=== PATIENT | male | born 2000 | race Caucasian/White ===

== ENCOUNTER 2021-08-12 13:37 | Emergency (ER) | payer MEDICAID ==
[~2021-08-12] VITALS: Ht 185.4 cm; Wt 175.0 kg
[~2021-08-12 13:37] MED LIST: rocuronium 10mg/ml inj IV ONE
[2021-08-12] MEDS ORDERED: LORazepam 2 mg/ml vial IV ONE ×2 (14:00→14:05)
--- NOTE | 2021-08-12 14:00 | NUR ---
Given 2mg of ativan IV in CT department. Pt had a tonic seizure lasting 1 min. L boyd gaze. Suctioned oral airway for secreations. Pt has bite garcia on his tongue.
[2021-08-12] MEDS ORDERED: LORazepam 2 mg/ml vial ONE (14:02)
[2021-08-12 14:03] LABS: BASOPHILS # (AUTO) 0.1 X10'3 (0-0.2); BASOPHILS % (AUTO) 0.5 % (0-1); EOSINOPHILS # (AUTO) 0.4 X10'3 (0-0.9); EOSINOPHILS % (AUTO) 1.9 % (0-6); HEMATOCRIT 46.8 % (42.0-52.0); LYMPHOCYTES # (AUTO) 5.8 X10'3 (1.1-4.8); LYMPHOCYTES % (AUTO) 27.3 % (21-51); MEAN CORPUSCULAR HEMOGLOBIN 30.2 PG (27.0-31.0); MEAN CORPUSCULAR VOLUME 94.3 FL (78-98); MEAN PLATELET VOLUME 8.8 FL (7.4-10.4); MONOCYTES # (AUTO) 1.3 X10'3 (0-0.9); MONOCYTES % (AUTO) 6.1 % (2-12); NEUTROPHILS # (AUTO) 13.7 X10'3 (1.8-7.7); NEUTROPHILS % (AUTO) 64.2 % (42-75); PLATELET COUNT 297 X10'3 (140-440); RED BLOOD COUNT 4.96 X10'6 (4.70-6.10); RED CELL DISTRIBUTION WIDTH 13.6 % (11.5-14.5); WHITE BLOOD COUNT 21.4 X10'3 (4.5-11.0)
[2021-08-12] MEDS ORDERED: succinylcholine 20mg/ml inj IV ONE (14:16)
[2021-08-12 14:18] LABS: ALANINE AMINOTRANSFERASE 31 U/L (12-78); ALBUMIN 4.9 G/DL (3.4-5.0); ALBUMIN/GLOBULIN RATIO 1.3 (1.1-1.5); ALKALINE PHOSPHATASE 80 IU/L (20-180); ANION GAP 27 (8-16); ASPARTATE AMINO TRANSFERASE 32 U/L (10-37); BILIRUBIN,TOTAL 0.5 MG/DL (0.1-1.0); BLOOD UREA NITROGEN 12 MG/DL (7-18); BUN/CREATININE RATIO 9.2 (5.4-32.0); CHLORIDE 103 MMOL/L (99-107); CREATININE 1.31 MG/DL (0.60-1.10); ETHANOL < 0.010 GM/DL (0.0-0.010); GLUCOSE 354 MG/DL (70-104); POTASSIUM 3.3 MMOL/L (3.5-5.1); SODIUM 144 MMOL/L (135-145); TOTAL PROTEIN 8.7 G/DL (6.4-8.2); eGFR 70 ML/MIN
[2021-08-12] MEDS ORDERED: MANNITOL 20% IV ONE (14:25)
[2021-08-12] MEDS ORDERED: levetiracetam inj 2,000 MG in normal saline 100ml IV soln 80 ML IV SCH (14:26)
[2021-08-12] MEDS ORDERED: rocuronium 10mg/ml inj IV ONE (14:30)
[2021-08-12] MEDS ORDERED: etomidate 2mg/ml inj. IV ONE (14:30)
[2021-08-12] MEDS ORDERED: levetiracetam inj 2,000 MG in normal saline 100ml IV soln 80 ML IV ONE (14:31)
[2021-08-12 14:32] LABS: MAGNESIUM 2.3 MG/DL (1.5-2.4); PARTIAL THROMBOPLASTIN TIME 23 SECONDS (22-32)
[2021-08-12 14:33] LABS: TOTAL CARBON DIOXIDE 13.8 MMOL/L (24-32)
--- NOTE | 2021-08-12 14:40 | NUR ---
HOB ELEVATED TO 45 DEGREES SINCE PT HAS BEEN BACK FROM CT
[2021-08-12] MEDS ORDERED: fentaNYL/PF 50MCG/1 ML 2ML syringe IV PRN (14:45)
[2021-08-12] MEDS ORDERED: FENTANYL-0.9 % NACL/PF 100 ML IV PRN (14:45)
[2021-08-12] MEDS ORDERED: midazolam 100mg in NS 100ml 100 ML IV PRN (14:45)
[2021-08-12] MEDS ORDERED: normal saline 1000ml 1,000 ML IV ONE (14:45)
[2021-08-12] MEDS ORDERED: midazolam 1 mg/ML 2ml injection IV ONE (14:45)
[2021-08-12 14:49] VITALS: BP 166/95
[2021-08-12] MEDS ORDERED: sodium bicarbonate (8.4%) inj. 50 MEQ in dextrose 5%-water 1,000 ML IV SCH (14:50)
[2021-08-12] MEDS ORDERED: midazolam 1 mg/ML 2ml injection ONE (14:50)
--- NOTE | 2021-08-12 15:00 | NUR ---
WENT WITH EMS AN MICN FOR PT TRANSPORT/TRANSFER TO [facility] IN [place]. NO MEDICATIONS WERE NEEDED DURING TRANSPORT AND PT REMAINED STABLE EN ROUTE. PT WAS BAGGED BY EMS WITH THE ETT TUBE THAT WAS PLACED HERE IN THE ER BY [facility] PRIOR TO TRANSFER. REPORT WAS GIVEN TO ION NURSE VIA PHONE AND THEN ALSO THE NURSES AT BEDSIDE UPON [facility] ED TRAUMA PHYSICIAN AND PA.
--- NOTE | 2021-08-12 15:10 | NUR ---
Report given to EMS. Pt is being transported to [facility] as a trauma activation.
[2021-08-12] MEDS ORDERED: levetiracetam inj 1,000 MG in normal saline 100ml IV soln 90 ML IV SCH ×4 (20:00)
== END 2021-08-12 15:10 ==
LOC: ER 13:37
DX: S02.19XA Other fracture of base of skull, initial encounter for closed fracture (principal); Z20.822 Contact with and (suspected) exposure to COVID-19; S06.4X9A Epidural hemorrhage with loss of consciousness of unspecified duration, initial encounter; S00.12XA Contusion of left eyelid and periocular area, initial encounter; R11.10 Vomiting, unspecified; R06.89 Other abnormalities of breathing; X58.XXXA Exposure to other specified factors, initial encounter; Y93.89 Activity, other specified; Y92.002 Bathroom of unspecified non-institutional (private) residence as the place of occurrence of the external cause; Y99.8 Other external cause status
CPT/HCPCS: 31500; 36415; 70450; 71045; 80053; 80320; 83605; 83735; 84145; 85025; 85610; 85730; 87040; 87635; 96365; 96367; 96368; 96375; 99291; C9803; J0330; J1953; J2060; J2250; J3490; 94002; 99285